=== PATIENT | female | born 1950 | race Caucasian/White ===

== ENCOUNTER → 2022-08-20 | Outpatient (CLI) | payer MEDICARE, SELFPAY ==
--- NOTE | 2022-08-20 | CYSPIN_PTH ---
PATIENT: MAURICE DURAN LOC: [facility] U#:[id number] AGE/SX: 72/F ROOM: RE08/20/[address]: Dr. Shonda Sotelo MD : [id number] BED: DIS: 08/20/2022 SPEC #: [id number] RECD: 08/20/22 14:00 STATUS: AISSATOU HYLTON #: [id number] RENEE: 08/20/22 00:[address]: Shonda Sotelo DEPT: CYTOLOGY RECD BY: Emmy Espinoza Tissues: Urine Procedures: Pap Stain (control) Special Stain Group II Cytospin Fluid HEADER OPERATION: Not noted PRE-OP DIAGNOSIS: Gross hematuria TISSUE SUBMITTED: Urine for cytology DIAGNOSIS CYTOLOGY Urine for cytology (cytospin): Negative for high-grade urothelial carcinoma (Cynthia Category II). Acute inflammation. See comment. AM:caitlyn 08/21/2022 COMMENT Abundant bacterial colonies are identified. Clinical correlation is suggested. The Cynthia System for urine cytology diagnostic categorization was used in the evaluation of this case. CYTOLOGY STUDY Slides are reviewed. CYTOLOGY GROSS Received is 40 ml of cloudy yellow fluid labeled with the patient's name and and designated per the requisition as urine. Submitted for cytology preparation. / caitlyn 08/20/2022 TC:5 CPT: 12951
[2022-08-20 17:47] LABS: Cytology, Body Fluid / CSF SEE PATHOLOGY REPORT
== END | disposition home or self-care (01) ==
PROVIDERS: Visit Provider Urology
DX: R31.0 Gross hematuria (principal)
CPT/HCPCS: 88108; 88313